=== PATIENT | male | born 1950 | race Caucasian/White ===

== ENCOUNTER 2017-11-16 11:00 | Outpatient (RCR) | payer MEDICARE, OTHER, SELFPAY ==
--- NOTE | 2017-09-04 14:59 | HP.PTEVAL_ITS ---
Patient's Visit Information WARNER WARE is a 67 year old M referred to Physical Therapy by Alex Burdick MD with a diagnosis of Parkinsons Disease. Date of Evaluation: 09/04/17 Physical Therapist: Eduardo Owen PT, - Visit Plan Frequency: 2-3x /Week Duration: 4-6 Weeks Plan: B LE strengthening, balance and proprio, core stab ex's, nustep, and HEP - Subjective Subjective: Pt reports he has noticed a steady decline in his balance over the years. Pt reports he has difficulty with getting his feet off the ground when he walks. Pt reports he has difficulty with getting out of chairs as well as mobility in bed. Pt reports sometimes he is not able to move in bed at all. Pt reports he has had a couple minor falls recently, but has not been injured from the falls. Pt reports he has good feeling in his feet at this time. Pt reports he does not ambulate with an AD. Pt is not in any pain other than some headaches. Pt reports his major goal is to get stronger and be able to walk and transfer with greater ease. - Objective Neuro: B LE sensation is WNL to light touch. B pat reflex= 2/3. MMT: B LE MMT 4 /5 throughout. Gait: Pt ambulates with a shuffle pattern. Pt is very slouched over with gait. FGA: 20/30. 20% disability - Balance Scores Functional Gait Assessment Score: 24 % Disability: 20.0000 - Goals Goal 1:: Increase B LE strength x 1 grade to aid with transfers Goal Time Frame: 4-6 Weeks Goal 2:: Increase FGA score x 5 points to aid with preventing future falls Goal Time Frame: 4-6 Weeks Goal 3:: I with all transfers Goal Time Frame: 4-6 Weeks Goal 4:: I with HEP Goal Time Frame: 4-6 Weeks - Rehabilitation Potential Physical Therapy Diagnosis: Pt has LE weakness, decreased balance, and a Hx of falls secondary to parkinson's disease Rehabilitation Potential: Good - Anticipated Interventions Patient/Client Instruction: Educate patient on: Condition, Plan of Care For the Purpose of:: To improve self management, To prevent re-injury Therapeutic Exercise to Include: Strength training, Endurance training, Balance training, Gait and locomotor training, Dynamic Lumbar Stabilization For the Purpose of:: To improve muscle performance and motor function, To increase tolerance to activity/condition/position, To improve performance and independence with ADL's Thank you for the opportunity to evaluate your patient. For Medicare and Medicare HMO plans, please review the plan of care and approve it. It will need to be FAXED BACK to us at [phone] for Medicare purposes. Please let me know if there are questions or concerns regarding this plan of care. Physician Signature: Date:
--- NOTE | 2017-10-12 11:19 | HP.PTREVAL ---
Alex Burdick MD, It has been my pleasure to treat WARNER WARE over the last 10 visits for Parkinsons Disease. Please see the progress note below for an update on the physical therapy plan of care! Subjective: Pt reports he feels really sluggish this date Objective/Function: Pt isabel Rx well. B LE strength is 4+/5 throughout this date. Pt is tolerating increased weight and reps with ex's. Pt still displays gross balance deficits with dynamic gait at this time. Plan Plan: Cont to progress as isabel 2x's per week x 4 weeks Goals Goal 1:: Increase B LE strength x 1 grade to aid with transfers Goal Time Frame: 4-6 Weeks Goal 2:: Increase FGA score x 5 points to aid with preventing future falls Goal Time Frame: 4-6 Weeks Goal Progress: Progressing Goal 3:: I with all transfers Goal Time Frame: 4-6 Weeks Goal Progress: Progressing Goal 4:: I with HEP Goal Time Frame: 4-6 Weeks Goal Progress: Progressing Anticipated Interventions Patient/Client Instruction: Educate patient on: Condition, Plan of Care For the Purpose of:: To improve self management, To prevent re-injury Therapeutic Exercise to Include: Strength training, Endurance training, Balance training, Gait and locomotor training, Dynamic Lumbar Stabilization For the Purpose of:: To improve muscle performance and motor function, To increase tolerance to activity/condition/position, To improve performance and independence with ADL's Please do not hesitate to contact me at [phone] by phone or if you have questions or concerns regarding this new plan of care! Sincerely, Eduardo Owen, PT,
--- NOTE | 2017-11-16 12:14 | HP.PTDCSUM ---
HP - PT D/C Summary It has been my pleasure to treat WARNER WARE under orders from Alex Burdick MD, for the diagnosis of Parkinsons Disease for a total of 18 visit(s). Discharge Date: Please see the following information for a summary of their discharge status. - Subjective Subjective: Pt is ready for discharge this date - Objective Objective/Function: B LE's are now rated at 5/5 throughout. Pt has not experienced any recent falls since beginning PT. Pt is I with all transfers. I with HEP. Rx goals achieved - Goals Goal 1:: Increase B LE strength x 1 grade to aid with transfers Goal Progress: Goal Met Goal 2:: Increase FGA score x 5 points to aid with preventing future falls Goal Progress: Goal Met Goal 3:: I with all transfers Goal Progress: Goal Met Goal 4:: I with HEP Goal Progress: Goal Met - Plan Plan: Discharge - D/C Information If there are questions or concerns regarding this patient's physical therapy, please feel free to call me at [phone]. Thank you for the referral of this patient. Sincerely, Eduardo Owen, PT,
== END 2017-11-16 13:22 | disposition home or self-care (01) ==
LOC: PT 11:00
PROVIDERS: Family Provider Family Medicine; PCP Family Medicine; Visit Provider Psychiatry & Neurology Neurology
DX: G20 Parkinson's disease (principal)
CPT/HCPCS: 97110; 97162; 97530

== ENCOUNTER → 2019-03-22 12:47 | Outpatient (CLI) | payer MEDICARE, OTHER, SELFPAY ==
--- NOTE | 2019-03-22 12:50 | CT_ITS ---
STUDY: CT BRAIN WITHOUT CONTRAST REASON FOR EXAM: Male, 69 years old. CONFUSION RADIATION DOSAGE (If Supplied By Facility): CTDIvol = ( 60.81 ) mGy, DLP = ( 1112.69 ) mGycm TECHNIQUE: Transaxial CT imaging of the brain was performed without administration of intravenous contrast material. Individualized dose optimization techniques were used for this CT. COMPARISON: No relevant priors. FINDINGS: Normal soft tissue structures. Normal calvarium. There is mild cerebral atrophy with widening of the extra-axial spaces and ventricular dilatation. There are areas of decreased attenuation within the white matter tracts of the supratentorial brain, consistent with microvascular disease changes. Normal basal ganglia and thalami. Normal brainstem. Normal cerebellum. There is no intracranial hemorrhage. There are no findings of an acute ischemic infarction. Normal visualized paranasal sinuses. CT/Brain/Head without Contrast IMPRESSION: Chronic involutional changes of the brain. Electronically Signed: Ángel Mccullough, at 15:19 EST , Service support ,
== END ==
PROVIDERS: Family Provider Family Medicine; PCP Family Medicine; Referring Provider Psychiatry & Neurology Neurology; Visit Provider Psychiatry & Neurology Neurology
DX: R41.0 Disorientation, unspecified (principal)
CPT/HCPCS: 70450

== ENCOUNTER 2019-05-13 13:00 | Outpatient (RCR) | payer MEDICARE, OTHER, SELFPAY ==
--- NOTE | 2019-03-18 17:58 | HP.PTEVAL_ITS ---
Patient's Visit Information WARNER WARE is a 69 year old M referred to Physical Therapy by Alex Burdick MD with a diagnosis of Parkinson's disease and instability and falls.. Date of Evaluation: 03/18/19 Physical Therapist: KELLY Escobar - Visit Plan Frequency: 2x /Week Duration: 7 weeks per order Plan: 2X/ week for 7 weeks for stretching, strengthening, dual tasking, gait training, functional activities with HEP.... also instruct pt in gait training on the rollator. - Subjective Findings: Pt reports that he saw Dr Burdick and he did not like that he is falling more and having a hard time catching himself. DTD class once a week. Occ couple times a week he will do a disc from [facility] with a workout. It is similar to DTD class. He reports that he is falling a couple of times a week but that was a little bit ago. He has stairs but to the basement and 3-4 steps entry engineer with a railing. Sit to stand: has some trouble with low to the ground chairs. If he falls he tries to roll or catch himself. He is able to get up from the floor most of the time. He reports stiffness in his back and in his legs especially after doing work around the house. They increased his meds a little and he has noticed a difference. His hallucinations have stepped up since the meds. He is trying to eat healthy. The Dr wants the pt to learn how to use the walker. He has a rollator at home. He never uses it. He sleeps the first 2-3 hours and then he is not sure what will happen as far as sleep. - Objective Gait: walks with flexed trunk flexed knees, rounded shoulder, scuffs the ground with his toes with wider URIEL with occ veering. Sit to stands: able to stand up but on 3rd attemot with no UE support. Stairs: Up and down recip with 2 hand rails. FGA: 14. LE MMT: B hip flex 4/5, B hip abd 4-/5, B knee ext and knee flex 4/5. Pt is able to walk on heels and toes. HS length: tight HS B, Tight Gastroc B. Pt has decreased ablility to extend B knees. TU.75 seconds, 8,76 seconds. Decrease trunk rotation - Balance Scores Functional Gait Assessment Score: 14 % Disability: 53.3400 - Goals Goal 1:: I HEP Goal Time Frame: 4-6 Weeks Goal 2:: Be able to walk with more upright posture and picking up his feet with gait Goal Time Frame: 4-6 Weeks Goal 3:: Pt to understand how to use his rollator Goal Time Frame: 4-6 Weeks Goal 4:: Decrease frequency of falls Goal Time Frame: 4-6 Weeks Goal 5:: Increase balance by increasing FGA by 3 pints to 17 Goal Time Frame: 4-6 Weeks - Rehabilitation Potential Rehabilitation Potential: Good - Anticipated Interventions Patient/Client Instruction: Educate patient on: Condition, Plan of Care For the Purpose of:: To decrease pain, To increase ROM, To improve nutrient delivery to tissue, To improve muscle performance and motor function, To improve ability to perform ADL's, To increase tolerance to activity/condition/position, To improve performance and independence with ADL's, To decrease level of supervision to perform tasks, To improve ability of physical actions for home/community/work/leisure, To improve gait and locomotor functions, To improve balance Therapeutic Exercise to Include: Strength training, Endurance training, Balance training, Body mechanics, Postural training, Flexibilty training, Gait and locomotor training, Neuromotor development, Passive ROM, Active ROM, Dynamic Lumbar Stabilization For the Purpose of:: To decrease pain, To increase ROM, To improve nutrient delivery to tissue, To improve muscle performance and motor function, To improve ability to perform ADL's, To improve performance and independence with ADL's, To decrease level of supervision to perform tasks, To improve ability of physical actions for home/community/work/leisure, To improve gait and locomotor functions, To improve health of tissue, To decrease soft tissue restriction, To increase flexibility/ROM, To improve endurance, To improve balance, To improve safety with gait Functional Training to Include: ADL Training, Gait training For the Purpose of:: To improve muscle performance and motor function, To improve ability to perform ADL's, To increase tolerance to activity/condition/position, To improve performance and independence with ADL's, To decrease level of supervision to perform tasks, To improve ability of physical actions for home/community/work/leisure, To improve gait and locomotor functions, To improve health of tissue, To decrease soft tissue restriction, To increase flexibility/ROM, To improve balance, To improve safety with gait, To improve safety Thank you for the opportunity to evaluate your patient. For Medicare and Medicare HMO plans, please review the plan of care and approve it. It will need to be FAXED BACK to us at [phone] for Medicare purposes. For Medicare only, by signing this I certify the plan of care. Please let me know if there are questions or concerns regarding this plan of care. Physician Signature: Date:
--- NOTE | 2019-05-13 14:23 | HP.PTDCSUM ---
It has been my pleasure to treat WARNER WARE referred by Alex Burdick MD, with the diagnosis of Parkinson's disease and instability and falls. for a total of 16 visit(s). Discharge Date: 05/13/19 Please see the following information for a summary of their discharge status. Subjective: Pt reports no pain. No falls. Last one scheduled. Pt feels that he wants to continue to do exercises at home. back pain Pain Intensity (Out of 10): Unrated general achy Pain Intensity (Out of 10): Unrated % Improvement: 10 Objective/Function: Pt very unsteady today. FGA: 14 Goal 1:: I HEP Goal Progress: Progressing Goal 2:: Be able to walk with more upright posture and picking up his feet with gait Goal Progress: Progressing Goal 3:: Pt to understand how to use his rollator Goal Progress: Not Progressing Goal 4:: Decrease frequency of falls Goal Progress: Not Progressing Goal 5:: Increase balance by increasing FGA by 3 pints to 17 Goal Progress: Not Progressing Plan: DC PT. Pt to do exercises at home at this time. Will be happy to see the pt again if needed. Pt will continue with DTD. Discharge Comments: DC PT If there are questions or concerns regarding this patient's physical therapy, please feel free to call me at [phone]. Thank you for the referral of this patient. Sincerely, Vandana Garg, KELLY
== END 2019-05-13 19:00 | disposition home or self-care (01) ==
LOC: PT 13:00
PROVIDERS: Family Provider Family Medicine; PCP Family Medicine; Referring Provider Psychiatry & Neurology Neurology; Visit Provider Psychiatry & Neurology Neurology
DX: G20 Parkinson's disease (principal); R26.89 Other abnormalities of gait and mobility; R29.6 Repeated falls
CPT/HCPCS: 97110; 97162; 97530

== ENCOUNTER 2020-06-03 13:00 | Outpatient (RCR) | payer MEDICARE, OTHER, SELFPAY ==
--- NOTE | 2020-01-15 18:47 | HP.PTEVAL ---
Patient's Visit Information WARNER WARE is a 69 year old M referred to Physical Therapy by Dr. Hebert Mejia MD with a diagnosis of PD and Lewy Body Dementia. Date of Evaluation: 01/15/20 Physical Therapist: KELLY Escobar - Visit Plan Frequency: 3x /Week Duration: 6 Weeks Plan: Do TUG next visit. 3X/ week for 6 weeks for postural exercises, dual tasking, gait training, rolling and bed mobility/transfers, sit to stand transfers, balance with HEP including stretching of LE and back and postural muscles. HEP: bridges, SKC, LTR - Subjective Pt reports that he is good some days and other days are rough. He is having trouble sleeping.... He is having freq urination. Walking... at times he is very unsteady or a very slow gait. He hasnt fallen for 3 weeks and fell 3 X that week. He has gotten good at catching himself. Stairs at home.... he uses them seldem and has a hand rail. Sit to stand: pt reports that soft chairs and low to the ground are hard and helps if has handles. Bed mobility... has trouble getting his feet up on the bed and getting out of the bed. He has a bar on the side of his bed to pull himself up. If he is on the floor he can roll over and get himself up off the floor. He has a bar beside the toilet. He is able to get in and out of the shower cause it is a little step out of the shower. He often complains of pain all over - Objective Gait: walks with flexed trunk and rounded shoulders, decreased arm swing, increased knee flexion and decreased heel to toe gait pattern. Pt has extremely tight HS, gastroc, L-spine. LE MMT: R hip flex 4+/5 and L hip flex 4/5, B hip abd 4+/5, B knee flex 4+/5, B knee ext 4+/5, hip ext.. he could only do 50% normal ROM bridge. Sit to stand: pt needs UE to stand. Rolling from back to s/L pt needed min A, going supine to sit and sit to supine pt struggled but able to do it. FGA 12/26. Seated opposite arm and leg... pt was able to keep sequence. Standing opp arm and leg ... pt could not get opp arm and leg without max tactile cues - Balance Scores Functional Gait Assessment Score: 10 % Disability: 66.6700 - Goals Goal 1:: I HEP Goal Time Frame: 6-8 Weeks Goal 2:: Increase FGA by 5 points to decrease fall risk Goal Time Frame: 6-8 Weeks Goal 3:: Walk with more heel to toe gait pattern, with knees in extension, upright trunk and good step length Goal Time Frame: 6-8 Weeks Goal 4:: Be able to roll from side to side and from supine to sit and sit to supine with ease Goal Time Frame: 6-8 Weeks Goal 5:: Be able to complete opp arm and leg in standing 2 X 10 B without messing up Goal Time Frame: 6-8 Weeks - Rehabilitation Potential Rehabilitation Potential: Good - Anticipated Interventions Patient/Client Instruction: Educate patient on: Condition, Plan of Care For the Purpose of:: To improve ability to perform ADL's, To increase tolerance to activity/condition/position, To improve performance and independence with ADL's, To decrease level of supervision to perform tasks, To improve ability of physical actions for home/community/work/leisure, To improve gait and locomotor functions, To improve health of tissue, To decrease soft tissue restriction, To increase flexibility/ROM, To improve endurance, To improve balance, To improve safety with gait Therapeutic Exercise to Include: Strength training, Endurance training, Balance training, Postural training, Flexibilty training, Gait and locomotor training, Neuromotor development, Passive ROM, Active ROM, Dynamic Lumbar Stabilization, Scapular Strength/Stabilization For the Purpose of:: To improve muscle performance and motor function, To improve ability to perform ADL's, To increase tolerance to activity/condition/position, To improve performance and independence with ADL's, To decrease level of supervision to perform tasks, To improve ability of physical actions for home/community/work/leisure, To improve gait and locomotor functions, To improve health of tissue, To decrease soft tissue restriction, To increase flexibility/ROM, To improve endurance, To improve balance, To improve safety with gait Functional Training to Include: Gait training For the Purpose of:: To improve gait and locomotor functions, To improve safety with gait Manual Therapy Techniques to Include: Passive ROM For the Purpose of:: To increase ROM Thank you for the opportunity to evaluate your patient. For Medicare and Medicare HMO plans, please review the plan of care and approve it. It will need to be FAXED BACK to us at [phone] for Medicare purposes. For Medicare only, by signing this I certify the plan of care. Please let me know if there are questions or concerns regarding this plan of care. Physician Signature: Date:
--- NOTE | 2020-02-17 14:00 | HP.PTREVAL ---
Dr. Hebert Mejia MD, It has been my pleasure to treat WARNER WARE over the last 10 visits for PD and Lewy Body Dementia. Please see the progress note below for an update on the physical therapy plan of care! Subjective: Pt reportst that he forgot his mask and he is having a so-so day. He reports that he has a some pain today but that moving does help him. He has not had any falls in a few months. Objective/Function: Gait: walks more confident with increase stride with his rollator. Needs verbal cues at times to walk with heel to toe and upright posture. He does like to leave the walker a lot instead of taking it to his chair etc. Rolling from side to side on the big mat table. Standing opp arm and leg is still a challenge for coordination and balance. Stairs: Plan Plan: 3X/ week for 6 weeks for postural exercises, dual tasking, gait training, rolling and bed mobility/transfers, sit to stand transfers, balance with HEP including stretching of LE and back and postural muscles. HEP: bridges, SKC, LTR Goals Goal 1:: I HEP Goal Time Frame: 6-8 Weeks Goal 2:: Increase FGA by 5 points to decrease fall risk Goal Time Frame: 6-8 Weeks Goal 3:: Walk with more heel to toe gait pattern, with knees in extension, upright trunk and good step length Goal Time Frame: 6-8 Weeks Goal Progress: Progressing Goal 4:: Be able to roll from side to side and from supine to sit and sit to supine with ease Goal Time Frame: 6-8 Weeks Goal Progress: Progressing Goal 5:: Be able to complete opp arm and leg in standing 2 X 10 B without messing up Goal Time Frame: 6-8 Weeks Goal Progress: Progressing Anticipated Interventions Patient/Client Instruction: Educate patient on: Condition, Plan of Care For the Purpose of:: To improve ability to perform ADL's, To increase tolerance to activity/condition/position, To improve performance and independence with ADL's, To decrease level of supervision to perform tasks, To improve ability of physical actions for home/community/work/leisure, To improve gait and locomotor functions, To improve health of tissue, To decrease soft tissue restriction, To increase flexibility/ROM, To improve endurance, To improve balance, To improve safety with gait Therapeutic Exercise to Include: Strength training, Endurance training, Balance training, Postural training, Flexibilty training, Gait and locomotor training, Neuromotor development, Passive ROM, Active ROM, Dynamic Lumbar Stabilization, Scapular Strength/Stabilization For the Purpose of:: To improve muscle performance and motor function, To improve ability to perform ADL's, To increase tolerance to activity/condition/position, To improve performance and independence with ADL's, To decrease level of supervision to perform tasks, To improve ability of physical actions for home/community/work/leisure, To improve gait and locomotor functions, To improve health of tissue, To decrease soft tissue restriction, To increase flexibility/ROM, To improve endurance, To improve balance, To improve safety with gait Functional Training to Include: Gait training For the Purpose of:: To improve gait and locomotor functions, To improve safety with gait Manual Therapy Techniques to Include: Passive ROM For the Purpose of:: To increase ROM Please do not hesitate to contact me at [phone] by phone or if you have questions or concerns regarding this new plan of care! Sincerely, Vandana Garg MPT
--- NOTE | 2020-03-02 16:12 | HP.PTREVAL_ITS ---
Dr. Hebert Mejia MD, It has been my pleasure to treat WARNER WARE over the last 13 visits for PD and Lewy Body Dementia. Please see the progress note below for an update on the physical therapy plan of care! Subjective: Pt reports that he has made some progress but he has some good days and some bad days. He feels that he is moving around better and somedays he has good balance and somedays some bad balance. He has some dizziness that comes and goes and that has been going on for about 18 years. He reports that he has had FLORES over the weekend and it started with sharp jabbing pain but now it has stuck with him for days. reports that he struggles with getting into bed and its almost like he will slide off the bed. I suggested that he might want to lower the bed but reports that he has a hard time getting out of a chair at times. Objective/Function: FGA 10/06... pt was really dizzy with standing vertical and horizontal head turns. Gait: pt is able to walk with more upright posture with heel to toe and good stride length when verbally cued. Standing opp arm and leg in standing 1X4 and then mess up sequence. Rolling from side to back to opp side and vice versa... able to do on a mat table with some increase in struggle. Pt was trying to turn 180 degrees with his rollator and his feet froze and he ended up outside of his walker with arms outstreched infront of him with frozen feet.... safety issue with keeping walker in front of him. Plan Plan: 2X/ week for 4 weeks for safety with walker backing into chair, and turning 180 degrees. postural exercises, dual tasking, gait training, rolling and bed mobility/transfers, sit to stand transfers, balance with HEP including stretching of LE and back and postural muscles. HEP: bridges, SKC, LTR Goals Goal 1:: Learn safety with walker infront at all times when turning 180 degrees or backing into a chair on verbal command. Goal Time Frame: 6-8 Weeks Goal 2:: Increase FGA by 5 points to decrease fall risk Goal Time Frame: 6-8 Weeks Goal Progress: Not Progressing Goal 3:: Walk with more heel to toe gait pattern, with knees in extension, upright trunk and good step length Goal Time Frame: 6-8 Weeks Goal Progress: Progressing Goal 4:: Be able to roll from side to side and from supine to sit and sit to supine with ease Goal Time Frame: 6-8 Weeks Goal Progress: Progressing Goal 5:: Be able to complete opp arm and leg in standing 2 X 10 B without messing up Goal Time Frame: 6-8 Weeks Goal Progress: Progressing Goal 6:: Stand at turn head 180 degrees horizotnal and vertical for 60 seconds without getting dizzy. Goal Time Frame: 4-6 Weeks Anticipated Interventions Patient/Client Instruction: Educate patient on: Condition, Plan of Care For the Purpose of:: To improve ability to perform ADL's, To increase tolerance to activity/condition/position, To improve performance and independence with ADL's, To decrease level of supervision to perform tasks, To improve ability of physical actions for home/community/work/leisure, To improve gait and locomotor functions, To improve health of tissue, To decrease soft tissue restriction, To increase flexibility/ROM, To improve endurance, To improve balance, To improve safety with gait Therapeutic Exercise to Include: Strength training, Endurance training, Balance training, Postural training, Flexibilty training, Gait and locomotor training, N euromotor development, Passive ROM, Active ROM, Dynamic Lumbar Stabilization, Scapular Strength/Stabilization For the Purpose of:: To improve muscle performance and motor function, To improve ability to perform ADL's, To increase tolerance to activity/condition/position, To improve performance and independence with ADL's, To decrease level of supervision to perform tasks, To improve ability of physical actions for home/community/work/leisure, To improve gait and locomotor functions, To improve health of tissue, To decrease soft tissue restriction, To increase flexibility/ROM, To improve endurance, To improve balance, To improve safety with gait Functional Training to Include: Gait training For the Purpose of:: To improve gait and locomotor functions, To improve safety with gait Manual Therapy Techniques to Include: Passive ROM For the Purpose of:: To increase ROM Please do not hesitate to contact me at [phone] by phone or if you have questions or concerns regarding this new plan of care! Sincerely, KELLY Escobar
--- NOTE | 2020-03-30 13:34 | HP.PTREVAL ---
Dr. Hebert Mejia MD, It has been my pleasure to treat WARNER WARE over the last 21 visits for PD and Lewy Body Dementia. Please see the progress note below for an update on the physical therapy plan of care! Subjective: Pt reports that he is still struggling with getting out of bed... his body sticks to the sheets. He finally finds a way out of bed. Radha thinks that I am getting better with PT in some areas. The walker slipped out from underneath him at the end of last week but he was not hurt. Objective/Function: FGA: 18. Gait: walks with rolling walker with more upright posture today. Bent knees.... and heel to toe until he gets talking and reverts back to scuffing his feet. Walking with CGA with no AD.... he did very well today with no real LOB, some veering when he turned his head to look at something with gait or talking. Pt definitly is more aware of pulling his rollator back to the chair. Pt is able to turn head 180 degrees horizontal without getting dizzy for over 60 seconds. Standing opp arm and leg... pt was able to get about 20 in a row once he got the ryhthm. Stairs: up and down recip with 2 hand rails with verbal cues to pit entire foot up on the step Plan Plan: hold chart until after Dr appointment. walker backing into chair, and turning 180 degrees. postural exercises, dual tasking, gait training, rolling and bed mobility/transfers, sit to stand transfers, balance with HEP including stretching of LE and back and postural muscles. HEP: bridges, SKC, LTR Goals Goal 1:: Learn safety with walker infront at all times when turning 180 degrees or backing into a chair on verbal command. Goal Time Frame: 6-8 Weeks Goal Progress: Progressing Goal 2:: Increase FGA by 5 points to decrease fall risk Goal Time Frame: 6-8 Weeks Goal Progress: Not Progressing Goal 3:: Walk with more heel to toe gait pattern, with knees in extension, upright trunk and good step length Goal Time Frame: 6-8 Weeks Goal Progress: Progressing Goal 4:: Be able to roll from side to side and from supine to sit and sit to supine with ease Goal Time Frame: 6-8 Weeks Goal Progress: Progressing Goal 5:: Be able to complete opp arm and leg in standing 2 X 10 B without messing up Goal Time Frame: 6-8 Weeks Goal Progress: Progressing Goal 6:: Stand at turn head 180 degrees horizotnal and vertical for 60 seconds without getting dizzy. Goal Time Frame: 4-6 Weeks Goal Progress: Goal Met Anticipated Interventions Patient/Client Instruction: Educate patient on: Condition, Plan of Care For the Purpose of:: To improve ability to perform ADL's, To increase tolerance to activity/condition/position, To improve performance and independence with ADL's, To decrease level of supervision to perform tasks, To improve ability of physical actions for home/community/work/leisure, To improve gait and locomotor functions, To improve health of tissue, To decrease soft tissue restriction, To increase flexibility/ROM, To improve endurance, To improve balance, To improve safety with gait Therapeutic Exercise to Include: Strength training, Endurance training, Balance training, Postural training, Flexibilty training, Gait and locomotor training, Neuromotor development, Passive ROM, Active ROM, Dynamic Lumbar Stabilization, Scapular Strength/Stabilization For the Purpose of:: To improve muscle performance and motor function, To improve ability to perform ADL's, To increase tolerance to activity/condition/position, To improve performance and independence with ADL's, To decrease level of supervision to perform tasks, To improve ability of physical actions for home/community/work/leisure, To improve gait and locomotor functions, To improve health of tissue, To decrease soft tissue restriction, To increase flexibility/ROM, To improve endurance, To improve balance, To improve safety with gait Functional Training to Include: Gait training For the Purpose of:: To improve gait and locomotor functions, To improve safety with gait Manual Therapy Techniques to Include: Passive ROM For the Purpose of:: To increase ROM Please do not hesitate to contact me at [phone] by phone or if you have questions or concerns regarding this new plan of care! Sincerely, Vandana Garg MPT
--- NOTE | 2020-05-04 09:19 | HP.PTREVAL ---
Dr. Hebert Mejia MD, It has been my pleasure to treat WARNER WARE over the last 22 visits for PD and Lewy Body Dementia. Please see the progress note below for an update on the physical therapy plan of care! Subjective: Pt. is here today for his reassessment. He arrives using rollator. He reports today is a good day, but he has been having increaed trouble getting out of bed and in AMs and PMs, when his meds are on the tail end. Objective/Function: Pt. did well with his gait today. CLEMENTINE with rollator, with occassional VCing with directional changes. Without AD, he tends to have a fwrd lean and increased shuffling pattern. Improved with VCing. TUG 9 sec with out AD, but required SBA for safety. 6 MWT- 998feet without AD. FGA . MMT / throghotu BLEs. ROM: joint ROM is good, tightness in B calves. HE is very tight in B hamstrings. STAIRS: Pt. is able to negotiate with 2 HR with coming down required SBA for safety. BED MOBILITY: min A to initiate supine to sitting, but rest with CLEMENTINE. I would like him to be better with or without AD, improved consistent wtih step length and impoved tempo as seen by increased TUG and 6 MWT. Plan Plan: Cont. with POC, add in HS stretching. Focus on gait tempo/safety. And proper gait reciprocal pattern. Work on bed mobility techniques as well. (Core strengthening would be helpful) Goals Goal 1:: Learn safety with walker infront at all times when turning 180 degrees or backing into a chair on verbal command. Goal Time Frame: 6-8 Weeks Goal Progress: Progressing Goal 2:: Increase FGA by 5 points to decrease fall risk Goal Time Frame: 6-8 Weeks Goal Progress: Progressing Goal 3:: Walk with more heel to toe gait pattern, with knees in extension, upright trunk and good step length Goal Time Frame: 6-8 Weeks Goal Progress: Progressing Goal 4:: Be able to roll from side to side and from supine to sit and sit to supine with ease Goal Time Frame: 6-8 Weeks Goal Progress: Progressing Goal 5:: Be able to complete opp arm and leg in standing 2 X 10 B without messing up Goal Time Frame: 6-8 Weeks Goal Progress: Progressing Goal 6:: LTG: Pt. to be able to walk 1200' in 6 MWT with or without AD. Goal Time Frame: 4-6 Weeks Goal Progress: Progressing Anticipated Interventions Patient/Client Instruction: Educate patient on: Condition, Plan of Care For the Purpose of:: To improve ability to perform ADL's, To increase tolerance to activity/condition/position, To improve performance and independence with ADL's, To decrease level of supervision to perform tasks, To improve ability of physical actions for home/community/work/leisure, To improve gait and locomotor functions, To improve health of tissue, To decrease soft tissue restriction, To increase flexibility/ROM, To improve endurance, To improve balance, To improve safety with gait Therapeutic Exercise to Include: Strength training, Endurance training, Balance training, Postural training, Flexibilty training, Gait and locomotor training, Neuromotor development, Passive ROM, Active ROM, Dynamic Lumbar Stabilization, Scapular Strength/Stabilization For the Purpose of:: To improve muscle performance and motor function, To improve ability to perform ADL's, To increase tolerance to activity/condition/position, To improve performance and independence with ADL's, To decrease level of supervision to perform tasks, To improve ability of physical actions for home/community/work/leisure, To improve gait and locomotor functions, To improve health of tissue, To decrease soft tissue restriction, To increase flexibility/ROM, To improve endurance, To improve balance, To improve safety with gait Functional Training to Include: Gait training For the Purpose of:: To improve gait and locomotor functions, To improve safety with gait Manual Therapy Techniques to Include: Passive ROM For the Purpose of:: To increase ROM Please do not hesitate to contact me at [phone] by phone or if you have questions or concerns regarding this new plan of care! Sincerely, Tommy Morales DPT
== END 2020-06-03 19:00 | disposition home or self-care (01) ==
LOC: PT 13:00
PROVIDERS: PCP Family Medicine; Referring Provider Psychiatry & Neurology Neurology; Visit Provider Psychiatry & Neurology Neurology
DX: G20 Parkinson's disease (principal); F02.80 Dementia in other diseases classified elsewhere, unspecified severity, without behavioral disturbance, psychotic disturbance, mood disturbance, and anxiety
CPT/HCPCS: 97110; 97162; 97164; 97530

== ENCOUNTER 2021-08-23 09:00 | Outpatient (RCR) | payer MEDICARE, SELFPAY ==
--- NOTE | 2021-05-19 19:26 | HP.PTEVAL_ITS ---
Patient's Visit Information FAHAD WARE is a 71 year old M referred to Physical Therapy by Dr. Rosario Gutierrez MD with a diagnosis of PD, Gait Instability. Date of Evaluation: 05/19/21 Physical Therapist: KELLY Escobar - Visit Plan Frequency: 2x /Week Duration: 2 Months Plan: 2X/ week for stretching (learn bed stretches and chair stretches for home to do in the morning and throughout the day), functional and bed transfers, gait mechancics, motor planning and dual tasking, balance activities, safety on stairs with HEP - Subjective His neurologist was hoping some PT would help. reports that Fahad is getting weaker, getting in and out of bed is a struggle and getting out of a chair is hard to get out of. He does have a lift chair also. They are all one floor. He does not go up and down the stair very much to the basement. He can do the stairs pretty easily. Getting in and out of bed is hard and he feels that sometimes he might not be able move or roll over. His balance is not good today. He has not fallen for a couple of weeks, reports that he falls about once a month. He is using a rollator. He only uses the rollator when he has longer distances in the house. He has used it more the last week. Fahad wants to be able to maintain when he has left. He is having depth perception issues as far as putting his food into his mouth. Pt is having more hallucinations also. - Pain FLORES Pain Intensity (Out of 10): 4 LBP Pain Intensity (Out of 10): 0 Pain Intensity Range: 8 - Objective Gait: walks with rollator walker with shuffled feet with smaller step length (each leg does not step farther than stance leg) with flexed trunk and head down but contineous steps. TU:45. Pt used UE to get out of chair and ran to the blue line and turned around. LE MMT: hip flex B 4+/5 in limited ROM, B Knee ext 4/5 in not full extension (struggles to get up to full knee ext (LAQ) position), knee flex 5/5, B hip abd 4-/5, bridge 1/2 normal ROM. Sit to stand: needs to use UE to get up off the chair and has decrease forward flexion to get out of the chair. Pt has decreased trunk rotation. supine to sit... struggles with trunk weakness/stiffness. Pt prefers to get out of bed on his stomach dropping his feet to the floor and standing up from there. Pt is able to roll side to side with max verbal cues to reach across his body to get body to roll that direction. Pt is able to do opposite arm and leg in sitting once therapist uses max verbal and tactile cues to get movig with correct arms and legs. Stairs: up and down recip with only quarter of foot on step when ascending and sometimes catching his heel on the back of the step when descending. - Balance/Special Test Scores Lower Extremity Functional Score: 19 - Goals Goal 1:: Be able to roll over in bed with bar on side of bed and supine to sit with SBA Goal Time Frame: 6-8 Weeks Goal 2:: Be able get out of a chair with SBA X 10 Goal Time Frame: 6-8 Weeks Goal 3:: Be able to go from sidelying to sitting to get out of bed instead of on his belly Goal Time Frame: 6-8 Weeks Goal 4:: Decrease TUG time by 1 seconds (7:45 running) with controlled gait Goal Time Frame: 6-8 Weeks Goal 5:: Teach indep AM/PM stretching routine to complete before getting out of bed and one chair stretches to help him move better Goal Time Frame: 6-8 Weeks Goal 6:: Be able to walk with more upright posture with rollator with heel to toe and less scuffing on the ground Goal Time Frame: 6-8 Weeks - Rehabilitation Potential Rehabilitation Potential: Good - Anticipated Interventions Patient/Client Instruction: Educate patient on: Condition, Plan of Care For the Purpose of:: To decrease pain, To increase ROM, To improve nutrient delivery to tissue, To improve muscle performance and motor function, To improve ability to perform ADL's, To increase tolerance to activity/condition/position, To improve performance and independence with ADL's, To decrease level of supervision to perform tasks, To improve ability of physical actions for home/community/work/leisure, To improve gait and locomotor functions, To improve health of tissue, To decrease soft tissue restriction, To increase flexibility/ROM, To improve endurance, To improve balance, To improve safety with gait Therapeutic Exercise to Include: Strength training, Endurance training, Balance training, Coordination, Body mechanics, Postural training, Flexibilty training, Gait and locomotor training, Neuromotor development, Active ROM, Dynamic Lumbar Stabilization, Scapular Strength/Stabilization For the Purpose of:: To decrease pain, To increase ROM, To improve nutrient delivery to tissue, To improve muscle performance and motor function, To improve ability to perform ADL's, To increase tolerance to activity/condition/position, To improve performance and independence with ADL's, To decrease level of supervision to perform tasks, To improve ability of physical actions for home/community/work/leisure, To improve gait and locomotor functions, To improve health of tissue, To decrease soft tissue restriction, To increase flexibility/ROM, To improve endurance, To improve balance, To improve safety with gait Functional Training to Include: Gait training For the Purpose of:: To improve gait and locomotor functions, To improve safety with gait Manual Therapy Techniques to Include: Passive ROM For the Purpose of:: To increase ROM, To decrease soft tissue restriction, To increase flexibility/ROM Thank you for the opportunity to evaluate your patient. For Medicare and Medicare HMO plans, please review the plan of care and approve it. It will need to be FAXED BACK to us at [phone] for Medicare purposes. For Medicare only, by signing this I certify the plan of care. Please let me know if there are questions or concerns regarding this plan of care. Physician Signature: Date:
--- NOTE | 2021-06-21 14:23 | HP.PTREVAL ---
Dr. Rosario Gutierrez MD, It has been my pleasure to treat WARNER WARE over the last 10 visits for PD, Gait Instability. Please see the progress note below for an update on the physical therapy plan of care! Subjective: Pt reports that he has been having trouble with his balance (as he trips on his cane). He is doing stretches 1X/ day at home. Objective/Function: Gait: pt was walking with flexed trunk, decreased heel to toe gait pattern, and flexed knees. Also pt had a straight cane in his R hand and kept tripping over it as he walked. Advised pt that he should be using a rollator especially when he is tired and weak. Rolling side to side: needed max verbal cues and some tactile and min A. Pt struggled to scoot to his R in supine more than to the left. Sitting and picking up his foot to mimic getting in and out of a car, he struggled with his R side more than his L. I had the pt tap his foot and then pick it up over the nory in sitting and he was able to do that much better. Sit to stand: uses hands but 10/10 and able to stand fully to balance with no UE support once push off the chair. TU.80 Plan Plan: 2X/ week for stretching (learn bed stretches and chair stretches for home to do in the morning and throughout the day), functional and bed transfers, gait mechanics, motor planning and dual tasking, balance activities, safety on stairs with HEP Balance/Gait/Functional tests - Balance/Special Test Scores Lower Extremity Functional Score: 35 Goals Goal 1:: Be able to roll over in bed with bar on side of bed and supine to sit with SBA Goal Time Frame: 6-8 Weeks Goal Progress: Progressing Goal 2:: Be able get out of a chair with SBA X 10 Goal Time Frame: 6-8 Weeks Goal Progress: Goal Met Goal 3:: Be able to go from sidelying to sitting to get out of bed instead of on his belly Goal Time Frame: 6-8 Weeks Goal 4:: Decrease TUG time by 1 seconds (7:45 running) with controlled gait Goal Time Frame: 6-8 Weeks Goal Progress: Progressing Goal 5:: Teach indep AM/PM stretching routine to complete before getting out of bed and one chair stretches to help him move better Goal Time Frame: 6-8 Weeks Goal Progress: Progressing Goal 6:: Be able to walk with more upright posture with rollator with heel to toe and less scuffing on the ground Goal Time Frame: 6-8 Weeks Goal Progress: Progressing Anticipated Interventions Patient/Client Instruction: Educate patient on: Condition, Plan of Care For the Purpose of:: To decrease pain, To increase ROM, To improve nutrient delivery to tissue, To improve muscle performance and motor function, To improve ability to perform ADL's, To increase tolerance to activity/condition/position, To improve performance and independence with ADL's, To decrease level of supervision to perform tasks, To improve ability of physical actions for home/community/work/leisure, To improve gait and locomotor functions, To improve health of tissue, To decrease soft tissue restriction, To increase flexibility/ROM, To improve endurance, To improve balance, To improve safety with gait Therapeutic Exercise to Include: Strength training, Endurance training, Balance training, Coordination, Body mechanics, Postural training, Flexibilty training, Gait and locomotor training, Neuromotor development, Active ROM, Dynamic Lumbar Stabilization, Scapular Strength/Stabilization For the Purpose of:: To decrease pain, To increase ROM, To improve nutrient delivery to tissue, To improve muscle performance and motor function, To improve ability to perform ADL's, To increase tolerance to activity/condition/position, To improve performance and independence with ADL's, To decrease level of supervision to perform tasks, To improve ability of physical actions for home/community/work/leisure, To improve gait and locomotor functions, To improve health of tissue, To decrease soft tissue restriction, To increase flexibility/ROM, To improve endurance, To improve balance, To improve safety with gait Functional Training to Include: Gait training For the Purpose of:: To improve gait and locomotor functions, To improve safety with gait Manual Therapy Techniques to Include: Passive ROM For the Purpose of:: To increase ROM, To decrease soft tissue restriction, To increase flexibility/ROM Please do not hesitate to contact me at [phone] by phone or if you have questions or concerns regarding this new plan of care! Sincerely, KELLY Escobar
--- NOTE | 2021-08-23 11:11 | HP.PTDCSUM ---
It has been my pleasure to treat WARNER WARE referred by Dr. Rosario Gutierrez MD, with the diagnosis of PD, Gait Instability for a total of 18 visit(s). Discharge Date: 08/23/21 Please see the following information for a summary of their discharge status. Subjective: Pt reports that he is sleepy today. He reports no falls. FLORES Pain Intensity (Out of 10): 1 LBP Pain Intensity (Out of 10): 5 R hip Pain Intensity (Out of 10): 3 R shoulder Pain Intensity (Out of 10): 6 % Improvement: 50 Objective/Function: Gait: still walks with flexed posture unless cued. He struggles with dragging R foot with gait. Sit to stands with holding 6# med ball 2 X 10 with SBA Goal 1:: Be able to roll over in bed with bar on side of bed and supine to sit with SBA Goal Progress: Progressing Goal 2:: Be able get out of a chair with SBA X 10 Goal Progress: Goal Met Goal 3:: Be able to go from sidelying to sitting to get out of bed instead of on his belly Goal Progress: Progressing Goal 4:: Decrease TUG time by 1 seconds (7:45 running) with controlled gait Goal Progress: Progressing Goal 5:: Teach indep AM/PM stretching routine to complete before getting out of bed and one chair stretches to help him move better Goal Progress: Progressing Goal 6:: Be able to walk with more upright posture with rollator with heel to toe and less scuffing on the ground Goal Progress: Progressing Plan: HEP and Parkinson's class once a week. Discharge Comments: DC PT to HEP and weekly PD class If there are questions or concerns regarding this patient's physical therapy, please feel free to call me at [phone]. Thank you for the referral of this patient. Sincerely, Vandana Garg, MPT Balance/Gait/Functional tests - Balance/Special Test Scores Lower Extremity Functional Score: 37
== END 2021-08-23 19:00 | disposition home or self-care (01) ==
LOC: PT 09:00
PROVIDERS: Visit Provider Psychiatry & Neurology Neurology
DX: R26.81 Unsteadiness on feet (principal)
CPT/HCPCS: 97110; 97161; 97530

== ENCOUNTER 2021-10-25 10:23 | Emergency (ER) | payer MEDICARE, SELFPAY ==
[2021-10-25 10:24] VITALS: BP 124/109; PULSE 65; RESP 18; TEMP 37.1; O2SAT 95; BMI 33.5
--- NOTE | 2021-10-25 10:59 | EDS_ITS ---
HPI HPI - Fall History of Present Illness Chief Complaint: Fall Informant: patient Occured/Mechanism Occurred: Today Mechanism/Context: Yes same level fall Usually ambulates: Cane Pain/Injury Location: Head, neck, right shoulder Pain Location: head, neck and upper extremity (Right shoulder) Quality of Pain: Dull Worsened by: Nothing Relieved by: Nothing Associated Symptoms Associated Symptoms: Positive for Loss of consciousness (Questionable brief loss of consciousness); Negative for Parasthesias or Weakness Length of loss of consciousness: Questionable brief episode Narrative Narrative: Patient presents after a fall that occurred today. Patient fell forward and hit his head. Patient complains of pain in his head and neck and right shoulder area. There is a questionable brief loss of consciousness. Patient has a history of Parkinson's and frequent falls. Family is unsure of the patient's last tetanus but thinks it is more than 10 years ago. Patient does not take any anticoagulants. Patient admits to a mild cough and rhinorrhea. Patient denies any other injuries. Tetanus Immunization: Unknown [facility] Medical History (Updated 10/25/21 @ 13:[address] Bharathi Hernandez, ) Parkinson disease Home Medications carbidopa ER 50 mg-levodopa 200 mg tablet,extended release 1 tab PO TIDAC 11/08/13 [History Last Taken 11/15/13 07:00] multivitamin with folic acid 400 mcg tablet (Thera) 1 tab PO DAILY 11/08/13 [History Last Taken Unknown] acetaminophen 500 mg tablet 500 mg PO BID 10/25/21 [History Last Taken Unknown] docusate sodium 100 mg capsule 100 mg PO DAILY 10/25/21 [History Last Taken Unknown] magnesium 1 tab PO DAILY 10/25/21 [History Last Taken Unknown] memantine 10 mg tablet (Namenda) 10 mg PO BID 10/25/21 [History Last Taken Unknown] ropinirole 12 mg tablet,extended release 24 hr 12 mg PO DAILY 10/25/21 [History Last Taken Unknown] Allergy/AdvReac Type Severity Reaction Status Date / Time oxybutynin Allergy Other Verified 10/25/21 10:29 oxycodone HCl [From Percocet] Allergy Other Verified 10/25/21 10:29 Sulfa (Sulfonamide Allergy Vomiting Verified 10/25/21 10:29 Antibiotics) venom-honey bee Allergy Unknown Verified 10/25/21 10:29 [bee venom (honey bee)] Surgical History (Updated 10/25/21 @ 11:[address] Bharathi Hernandez DO) History of bladder surgery Social History Smoking Status: Never smoker ROS ROS ED Constitutional Constitutional ED: Denies chills or fever(s) Eyes Eyes: Denies blurry vision or change in vision ENT ENT ED: Reports rhinorrhea; Denies sore throat Cardiovascular Cardiovascular: Denies chest pain or palpitations Respiratory/Chest Respiratory/Chest: Reports cough; Denies dyspnea Gastrointestinal Gastrointestinal: Denies nausea or vomiting Genitourinary Genitourinary ED: Denies dysuria or hematuria Musculoskeletal Musculoskeletal: Denies back pain or neck pain Integumentary Denies abscess or rash Neurologic Neurologic: Reports headache(s); Denies weakness Allergic/Immunologic Allergic/Immunologic ED: Denies mouth swelling or urticaria EXAM Physical Exam Const Vital Signs: 10/25/21 10:24 10/25/21 10:30 10/25/21 13:07 Temperature 98.8 F 98.3 F Temperature Source Temporal Oral Pulse Rate 65 Respiratory Rate 18 Respiratory Effort Normal Non-Labored Respiratory Depth Normal Respiratory Pattern Normal Blood Pressure 124/109 H Blood Pressure Mean 114 Pulse Ox 95 Oxygen Delivery Method Room Air Positive well nourished and well developed General Appearance ED: well developed and NAD HEENT Reports moist mucous membranes HEENT Narrative: There are abrasions and mild edema over the forehead. There are no deep lacerations noted. There is tenderness over the cervical spine and right cervical paraspinal muscles. There is also tenderness over the right trapezius posterior shoulder area. There is no bony crepitance or step-off noted. Eyes PERRL and EOMs intact bilaterally Neck supple and no JVD Neck Narrative: There is tenderness over the right cervical paraspinal muscles and cervical spine. There is no bony crepitance or step-off. There is no deformity. Resp normal respiratory effort and clear to auscultation bilaterally Cardio regular rate, regular rhythm and no murmurs GI normal to inspection, nondistended, normoactive bowel sounds and non-tender Palpation: soft Extremity normal to inspection General Extremety ED: Negative for edema or tenderness General Extremity: Negative for edema Neuro CN's II-XII intact bilaterally, moves all extremities, no focal motor deficits and no sensory deficits noted Neuro Narrative: Patient has pill-rolling tremor to bilateral upper extremities. Sensorium / Orientation: alert Motor Exam: strength 5/5 throughout Psych mental status grossly normal Skin Trauma: abrasion MDM MDM MDM Narrative Medical decision making narrative: CT scan of the brain was obtained. There is no acute intracranial abnormality. This was interpreted by the radiologist and reviewed by myself. CT scan of the cervical spine was obtained. There are degenerative changes noted. There is no acute fracture or spondylolisthesis. This was interpreted by the radiologist and reviewed by myself. X-rays of the right shoulder were obtained. There are 2 views. On my interpretation, there is no acute fracture. There is no dislocation. There is no soft tissue swelling. Radiologist also interpreted the x-rays and agrees. Patient was advised of his findings. Family became concerned that this is a recurrent syncopal episode. Because of this, EKG was obtained. On my interpretation it shows a normal sinus rhythm with a rate of 72. There are nonspecific ST-T wave changes. There is no acute ST elevation or depression. There is left axis deviation at -31. CBC was within normal limits. Basic metabolic profile was essentially within normal limits. High-sensitivity troponin was normal. Patient was advised of his findings. Family was instructed to follow-up with the patient's primary care physician in 5 to 7 days for further evaluation. Family understands and is agreeable with the plan. All questions were answered. Lab Data Attestation: I reviewed the patient's lab results. Labs: Laboratory Results - last 24 hr 10/25/21 10/25/21 10:30 10:30 WBC 5.7 RBC 4.56 L Hgb 14.1 Hct 41.5 MCV 91.0 MCH 30.9 MCHC 34.0 RDW Std Deviation 42.3 RDW Coeff of Alexandra 12.9 Plt Count 206 MPV 10.6 Immature Gran % (Auto) 0.400 Neut % (Auto) 50.4 Lymph % (Auto) 36.3 [place] % (Auto) 7.6 Eos % (Auto) 4.9 Baso % (Auto) 0.4 Absolute Neuts (auto) 2.9 Absolute Lymphs (auto) 2.06 Nucleated RBC % 0 Sodium 142 Potassium 4.0 Chloride 109 H Carbon Dioxide 29.0 Anion Gap 4 L BUN 23 H Creatinine 1.14 Estim Creat Clear Calc 60.48 Est GFR (MDRD) Af Amer 81 Est GFR (MDRD) Non-Af 67 BUN/Creatinine Ratio 20.2 H Glucose 91 Calcium 9.1 Troponin I High Sens 5 Radiography Diagnostic Testing: Clinical Impression(s) from Imaging Studies Brain CT 10/25/21 11:06 IMPRESSION: Chronic involutional changes of the brain. Electronically Signed: Rivera Montgomery MD at 11:44 EDT , Cervical Spine CT 10/25/21 11:06 IMPRESSION: Multilevel degenerative changes, as described above. Electronically Signed: Rivera Montgomery MD at 11:46 EDT , Shoulder X-Ray 10/25/21 11:30 IMPRESSION: 1. No acute process of the shoulder. Electronically Signed: Rivera Montgomery MD at 11:49 EDT , EKG Initial EKG: Attestation: I personally reviewed and interpreted this EKG as follows: Interpretation: Sinus Rhythm (72) and Non-Specific ST Changes Discharge Plan Triage Chief Complaint: Fall Other Complaint: Head Injury ED Provider: Bharathi Hernandez Dx/Rx/DC Orders Clinical Impression: Closed head injury, Abrasion of forehead, Fall, Parkinson disease, Syncope and collapse Instructions: ED Head Injury (Adult) Prescriptions: No Action carbidopa-levodopa 1 TABLET tablet extended release 1 tab PO TIDAC Label Comments: PARKINSON'S multivitamin with folic acid [Thera] 1 TABLET tablet 1 tab PO DAILY Label Comments: VITAMIN acetaminophen [Tylenol Ex Str Arthritis Pain] 500 mg Tablet 500 mg PO BID magnesium Tablet 1 tab PO DAILY ropinirole 12 mg Tablet Extended Release 24 Hr 12 mg PO DAILY docusate sodium 100 mg Capsule 100 mg PO DAILY memantine [Namenda] 10 mg Tablet 10 mg PO BID Primary Care Provider: Jose Aleman Referrals: Jose Aleman DO [Primary Care Provider] - 5-7 Days Disposition Disposition: Home, Self Care
--- NOTE | 2021-10-25 11:06 | CT_ITS ---
STUDY: CT CERVICAL SPINE WITHOUT CONTRAST REASON FOR EXAM: Male, 71 years old. at adult daycare, stumbled and fell, hit head (abrasions to forehead), possible LOC, was feeling dizzy. c/o neck pain as well per EMS. hx: parkinson''s RADIATION DOSAGE (If Supplied By Facility): CTDIvol = ( 27.89 ) mGy, DLP = ( 618.26 ) mGycm TECHNIQUE: High resolution transaxial imaging was performed without contrast material. Sagittal and coronal images were reconstructed. Individualized dose optimization techniques were used for this CT. COMPARISON: None FINDINGS: Normal craniovertebral junction. Normal anterior atlantoaxial articulation. Normal odontoid process. Normal cervical lordosis. No visualized acute fracture or compression deformity. No demonstrated jumped facets. Moderate multilevel degenerative changes are present. Mild central canal stenosis is seen at several levels due to posterior disc osteophyte complexes. Normal visualized soft tissue structures. CT/Spine Cervical without Contras IMPRESSION: Multilevel degenerative changes, as described above. Electronically Signed: Rivera Montgomery MD at 11:46 EDT ,
--- NOTE | 2021-10-25 11:06 | CT_ITS ---
STUDY: CT BRAIN WITHOUT CONTRAST REASON FOR EXAM: Male, 71 years old. at adult daycare, stumbled and fell, hit head (abrasions to forehead), possible LOC, was feeling dizzy. c/o neck pain as well per EMS. hx: parkinson''s RADIATION DOSAGE (If Supplied By Facility): CTDIvol = ( 44.99 ) mGy, DLP = ( 812.98 ) mGycm TECHNIQUE: Transaxial CT imaging of the brain was performed without administration of intravenous contrast material. Individualized dose optimization techniques were used for this CT. COMPARISON: None. FINDINGS: Normal soft tissue structures. Normal calvarium. No visualized skull fracture or hemorrhagic contusions of the brain parenchyma or subdural hemorrhage. There is mild cerebral atrophy with widening of the extra-axial spaces and ventricular dilatation. Normal white matter tracts of the cerebral hemispheres. Normal basal ganglia and thalami. Normal brainstem. Normal cerebellum. There is no intracranial hemorrhage. There are no findings of an acute ischemic infarction. Normal visualized paranasal sinuses. CT/Brain/Head without Contrast IMPRESSION: Chronic involutional changes of the brain. Electronically Signed: Rivera Montgomery MD at 11:44 EDT ,
[2021-10-25] MEDS: Diphth,Pertuss(Acell),Tet Vac 0.5 ML Vial IM (11:24)
--- NOTE | 2021-10-25 11:30 | RAD_ITS ---
STUDY: X-RAY - RIGHT SHOULDER REASON FOR EXAM: Male, 71 years old. Injury/Pain TECHNIQUE: 2 view(s) of the shoulder. COMPARISON: Chest x-ray dated October 11, 2013 FINDINGS: Normal glenohumeral articulation. There is mild degenerative arthrosis of the acromioclavicular joint without inferior osseous spur formation. Normal acromion. Normal humeral head and visualized proximal humerus. The soft tissue structures are unremarkable. There is no demonstrated fracture. Normal visualized pulmonary apex. RAD/Shoulder min 2 Views IMPRESSION: 1. No acute process of the shoulder. Electronically Signed: Rivera Mongtomery MD at 11:49 EDT ,
--- NOTE | 2021-10-25 13:05 | EKG12_ITS ---
Test Reason : Blood Pressure : / mmHG Vent. Rate : 072 BPM Atrial Rate : 072 BPM P-R Int : 152 ms QRS Dur : 086 ms QT Int : 432 ms P-R-T Axes : 047 -31 -11 degrees QTc Int : 473 ms Normal sinus rhythm with sinus arrhythmia Left axis deviation Nonspecific T wave abnormality Prolonged QT Abnormal ECG Confirmed by KUSH MIRANDA, NIRAV ([id number]), website/blog editor MOOSE JEROME ([id number]) on 10/26/2021 7:42:55 AM Referred By: Confirmed By:NIRAV CURRIE MD
[2021-10-25 13:07] VITALS: TEMP 36.8
[2021-10-25 13:18] LABS: Absolute Lymphocyte Count 2.06 X10^3/uL (0.83-4.51); Absolute Neutrophil Count 2.9 X10^3/uL (2.0-7.7); Basophil# 0.02 X10^3/uL; Basophil% 0.4 % (0-1); Eosinophil# 0.28 X10^3/uL; Eosinophils% 4.9 % (0-5); Hematocrit 41.5 % (40-54); Hemoglobin 14.1 g/dL (13.0-16.5); Lymphocyte # 2.06 X10^3/ul (0.83-4.51); Lymphocyte % 36.3 % (19-41); Mean Corpuscular Hgb 30.9 pg (27.0-32.0); Mean Platelet Vol. 10.6 fl (6.2-12.0); Monocyte# 0.43 X10^3/uL; Monocyte% 7.6 % (0-10); NRBC Flagged by Analyzer 0 % (0-5); Neutrophil # 2.86 X10^3/uL (2.7-7.7); Neutrophil % 50.4 % (47-70); Platelet Count 206 K/mm3 (150-450); RBC Distribution Width CV 12.9 % (11.6-14.6); RBC Distribution Width SD 42.3 fl (35.1-43.9); Red Blood Count 4.56 M/mm3 (4.6-6.2); White Blood Count 5.7 K/mm3 (4.4-11.0)
[2021-10-25 13:34] LABS: Anion Gap 4 (5-15); BUN 23 mg/dL (7-18); BUN/Creat Ratio 20.2 RATIO (10-20); Calcium,Total 9.1 mg/dL (8.5-10.1); Chloride 109 mmol/L (98-107); Creatinine, Serum 1.14 mg/dL (0.70-1.30); EST Glomerular Filtration Rate 67 mL/min (>60); Est Glom Filt Rate - Afr Amer 81 mL/min (>60); Estimated Creatinine Clearance 60.48 ml/min; Glucose 91 mg/dL (74-106); Sodium Level 142 mmol/L (136-145); Troponin-I HS 5 pg/mL (3.0-78.0)
[2021-10-25 13:57] VITALS: BP 165/101; PULSE 74; RESP 16; O2SAT 98
== END 2021-10-25 14:02 | disposition home or self-care (01) ==
PROVIDERS: Emergency Provider Emergency Medicine; PCP Family Medicine; Visit Provider Emergency Medicine
DX: S09.8XXA Other specified injuries of head, initial encounter (principal); G20 Parkinson's disease; S06.9X9A Unspecified intracranial injury with loss of consciousness of unspecified duration, initial encounter; R55 Syncope and collapse; M25.511 Pain in right shoulder; W18.30XA Fall on same level, unspecified, initial encounter; Z91.81 History of falling; Z23 Encounter for immunization
CPT/HCPCS: 70450; 72125; 73030; 80048; 84484; 85025; 90471; 90715; 93005; 99285

== ENCOUNTER → 2022-01-07 | Outpatient (CLI) | payer MEDICARE, SELFPAY ==
--- NOTE | 2022-01-07 | LES_PTH ---
PATIENT: WARNER WARE LOC: [facility] U#:[id number] AGE/SX: 71/M ROOM: RE01/07/[address]: Dr. Jose Aleman, : 1950 BED: DIS: 01/07/2022 SPEC #: [id number] RECD: 01/07/22 12:03 STATUS: KECIA PATY #: [id number] JAZZY: 01/07/22 00:[address]: Jose Aleman DEPT: SURGICAL PATHOLOGY RECD BY: Joe Singh Tissues: Skin of buttock, NOS Procedures: Surgery Specimen Level IV HEADER OPERATION: Excision skin polyp right buttock PRE-OP DIAGNOSIS: Enlarging, oozing polyp TISSUE SUBMITTED: Skin polyp MICROSCOPIC DIAGNOSIS Right buttock lesion, excision: Inflamed fibroepithelial polyp with focal area of ulceration and associated acute inflammation (skin tag). / SJ 01/10/2022 MICROSCOPIC DESCRIPTION Slides are reviewed. GROSS DESCRIPTION Received in fixative is one container labeled with the patient's name and designated right buttock lesion. The specimen consists of a polypoid piece of malone-white skin measuring 3 x 3 x 1.5 cm. A focal area of ulceration is noted at the tip of the lesion measuring 1.5 x 1.5 cm. The specimen base is inked and specimen is serially sectioned and submitted entirely in five cassettes. Cassettes 4 contain the inked base of the lesion. / SJ:rg 01/07/2022 TC:5 [facility]:[id number]
== END | disposition home or self-care (01) ==
LOC: BFHLAB 09:59 → LABSPEC 10:00
PROVIDERS: PCP Family Medicine; Visit Provider Family Medicine
DX: L91.8 Other hypertrophic disorders of the skin (principal)
CPT/HCPCS: 88305